=== PATIENT | female | born 1950 | race Caucasian/White ===

== ENCOUNTER 2017-11-03 13:45 | Outpatient (CLI) | payer OTHER | END 2017-11-03 13:46 | disposition home or self-care (01) | LOC: BICMAMMO 13:45 | PROVIDERS: ATTEND Family Medicine | DX: Z12.31 Encounter for screening mammogram for malignant neoplasm of breast (principal); N95.8 Other specified menopausal and perimenopausal disorders; M85.80 Other specified disorders of bone density and structure, unspecified site; Z80.3 Family history of malignant neoplasm of breast | CPT/HCPCS: 77063; 77067; 77080 ==

== ENCOUNTER 2018-12-18 13:34 | Outpatient (CLI) | payer MEDICARE ==
--- NOTE | 2018-12-18 14:31 | MMO ---
Bilateral MAMMO Bilat Screen [facility]. CLINICAL HISTORY: Patient is 68 years old and is seen for screening. The patient has no personal history of cancer. VIEWS: The views performed were: bilateral craniocaudal with tomosynthesis and bilateral mediolateral oblique with tomosynthesis. FILMS COMPARED: The present examination has been compared to prior imaging studies performed at [facility] on 12/29/2015 and 11/03/2017, and at [facility] on 05/05/2012 and 05/07/2013. MAMMOGRAM FINDINGS: There are scattered fibroglandular densities. There are stable benign appearing calcifications seen in the left breast. There are no suspicious masses, suspicious calcifications, or new areas of architectural distortion. IMPRESSION: THERE IS NO MAMMOGRAPHIC EVIDENCE OF MALIGNANCY. A ROUTINE FOLLOW-UP MAMMOGRAM IN 1 YEAR IS RECOMMENDED. THE RESULTS OF THIS EXAM WERE SENT TO THE PATIENT. ACR BI-RADS Category 2 - Benign finding MAMMOGRAPHY NOTE: 1. A negative mammogram report should not delay a biopsy if a dominant of clinically suspicious mass is present. 2. Approximately 10% to 15% of breast cancers are not detected by mammography. 3. Adenosis and dense breasts may obscure an underlying neoplasm. Reported by: ESTEFANI MILLER MD Electonically Signed: [id number]
--- NOTE | 2018-12-18 15:50 | BD ---
DEXA BONE DENSITY: HISTORY: Disorder of bone density and structure. COMPARISON: 05/05/2011 05/07/2013 FINDINGS: LUMBAR SPINE BMD (g/cm2) T-SCORE Z-SCORE L1 1.030 0.4 2.1 L2 1.083 0.5 2.4 L3 1.161 0.7 2.7 L4 1.199 1.3 3.3 TOTAL 1.123 0.7 2.6 On 05/05/2011, T-score 1.213 and Z-score 1.5. On 05/07/2013, T-score 1.222 and Z-score 1.6. BMD change versus baseline -7.4%. BMD change versus previous -8.1%. BMD (g/cm2) T-SCORE Z-SCORE FEMORAL NECK 0.723 -1.1 0.5 TOTAL 0.881 -0.5 0.9 On 05/05/2011, T-score 0.914 and Z-score -0.2. On 05/07/2013, T-score 0.989 and Z-score 0.4. BMD change versus baseline -3.6%. BMD change versus previous -10.9%. IMPRESSION: 1. Lumbar spine WHO classification normal. Fracture risk is not increased. 2. Femoral neck WHO classification is osteopenia. Ten year fracture risk for a major osteoporotic f racture is 8.7% and for a hip fracture is 0.8%. POS: OFF
== END 2018-12-18 13:35 | disposition home or self-care (01) ==
LOC: BICMAMMO 13:34
PROVIDERS: ATTEND Family Medicine
DX: Z12.31 Encounter for screening mammogram for malignant neoplasm of breast (principal); M85.80 Other specified disorders of bone density and structure, unspecified site; M85.859 Other specified disorders of bone density and structure, unspecified thigh
CPT/HCPCS: 77063; 77067; 77080